=== PATIENT | male | born 1970 | race Caucasian/White ===

== ENCOUNTER 2022-03-19 13:16 | Emergency (ER) | payer BC ==
[2022-03-19] MEDS ORDERED: Aspirin 81 MG Tab.Chew PO ONE (14:11)
[2022-03-19 14:53] LABS: ESTIMATED GFR 92 mL/min (>60); TROPONIN I HIGH SENSITIVITY 5.9 pg/mL (<=60.3)
[2022-03-19] MEDS ORDERED: Simethicone Drops 40 MG/0.6 ML 30 ML Bottle PO ONE (16:51)
[2022-03-19] MEDS ORDERED: Alum Hydrox/Mag Hydrox/Simeth 15 ML, Lidocaine 2% 15 ML PO ONE ×2 (16:54)
[2022-03-19] MEDS ORDERED: Simethicone 125 MG Tab.Chew PO STA (17:22)
== END 2022-03-19 18:01 | disposition home or self-care (01) ==
LOC: JP.ED 13:16
DX: K21.9 Gastro-esophageal reflux disease without esophagitis (principal); Z88.0 Allergy status to penicillin; Z88.2 Allergy status to sulfonamides
CPT/HCPCS: 36415; 71046; 80053; 84484; 85025; 93005; 99285; A9270